=== PATIENT | male | born 1970 | race Caucasian/White ===

== ENCOUNTER 2016-12-12 15:45 | Outpatient (CLI) | payer OTHER ==
[2015-11-04 10:06] VITALS: BP 165/99
--- NOTE | 2016-12-12 17:28 | Diagnostic Imaging Report ---
[facility] [address] [facility].[address] [address] Report Submission Date: Dec 12, 2016 4:17:40 PM CDT Patient Study Name: CHENCHO ADAMS Date: Dec 12, 2016 3:50:44 PM CDT Modality Type: CR Gender: M Description: CHEST : 74 Institution: [facility] Physician: MERLIN DUENAS Chest PA and lateral views Clinical history: Cough with wheezing for 1 week Normal heart shadow and mediastinum. Clear lungs without acute infiltrate or pleural effusion. Normal bony thorax. Prominent bronchopulmonary marking probably consistent with acute bronchitis Impression: Acute bronchitis No acute consolidation or pleural effusion Electronically signed on Dec 12, 2016 4:17:40 PM CDT by: Ike VALENTINO
== END 2016-12-12 15:46 ==
LOC: RAD 15:45
PROVIDERS: ATTEND Physician Assistant
DX: R06.02 Shortness of breath (principal)
CPT/HCPCS: 71020

== ENCOUNTER 2018-01-10 10:57 | Outpatient (CLI) | payer OTHER ==
[2015-11-04 10:06] VITALS: BP 165/99
[2018-01-10 11:17] LABS: BASOPHILS % 1.4 (0.0-1.5); EOSINOPHILS % 11.2 % (0.0-6.8); MEAN CORPUSCULAR HEMOGLOBIN 30.8 pg (28.0-34.0); MEAN CORPUSCULAR VOLUME 87.7 fl (80.0-100.0); MONOCYTES % 5.4 % (0.0-11.0); NEUTROPHILS # 2.2 # k/uL (1.4-7.7)
[2018-01-10 11:42] LABS: eGFR (African) > 60; eGFR (Non-African) > 60
== END 2018-01-10 11:00 ==
LOC: LAB 10:57
PROVIDERS: ATTEND Physician Assistant
DX: Z00.00 Encounter for general adult medical examination without abnormal findings (principal); E03.9 Hypothyroidism, unspecified
CPT/HCPCS: 36415; 80053; 80061; 84443; 85025

== ENCOUNTER 2018-09-04 09:31 | Outpatient (CLI) | payer OTHER ==
[2015-11-04 10:06] VITALS: BP 165/99
--- NOTE | 2018-09-04 16:49 | Diagnostic Imaging Report ---
PADMA JOHNSON [facility] [address] [facility].[address] [address] Report Submission Date: Sep 04, 2018 10:28:46 AM [facility] Patient Study Name: CHENCHO ADAMS Date: Sep 04, 2018 9:51:49 AM [facility] Modality Type: US Gender: M Description: US RUQ : 74 Institution: [facility] Physician: PADMA JOHNSON Examination: Ultrasound right upper quadrant History: Ruq pain x 3weeks wnl (Hx) Findings: Sonographic evaluation of the right upper quadrant demonstrates the gallbladder without stones or sludge. Gallbladder wall measures 2.0 mm. Common bile duct measures 2.6 mm. No intrahepatic biliary dilation. Liver demonstrates normal homogeneous echogenicity. No mass or cyst. Normal flow on color analysis. Normal portal vein Doppler waveform. Right kidney without cortical mass or cyst. No hydronephrosis. Pancreatic region without gross irregularity. Impression: No gallstone or obstruction. Unremarkable abdominal ultrasound. Electronically signed on Sep 04, 2018 10:28:46 AM [facility] by: Kevyn VALENTINO
[2018-09-05 12:05] LABS: eGFR (Non-African) > 60
== END 2018-09-04 09:33 ==
LOC: RAD 09:31
PROVIDERS: ATTEND Family Medicine
DX: R10.11 Right upper quadrant pain (principal)
CPT/HCPCS: 36415; 76705; 80053; 83690

== ENCOUNTER 2018-12-20 09:21 | Outpatient (CLI) | payer OTHER ==
[2015-11-04 10:06] VITALS: BP 165/99
[2018-12-20 10:24] LABS: eGFR (Non-African) > 60
== END 2018-12-20 09:22 ==
LOC: LAB 09:21
PROVIDERS: ATTEND Family Medicine
DX: R10.11 Right upper quadrant pain (principal); R94.5 Abnormal results of liver function studies
CPT/HCPCS: 36415; 80053; 86706; 86708; 86803

== ENCOUNTER 2019-01-08 08:06 | Outpatient (CLI) | payer OTHER ==
[2015-11-04 10:06] VITALS: BP 165/99
--- NOTE | 2019-01-08 09:00 | Diagnostic Imaging Report ---
PADMA JOHNSON [facility] [address] [facility] [address] [place] [address]. [address] Report Submission Date: Jan 08, 2019 8:50:31 AM CDT Patient Study Name: CHENCHO ADAMS Date: Jan 08, 2019 8:24:26 AM CDT Modality Type: CT Gender: M Description: CT ABD PELVIS W/ CON : 74 Institution: [facility] Physician: PADMA JOHNSON Examination: CT Abdomen/pelvis History: RUQ PAIN X 4 MONTHS. HX OF DIVERTICULITIS. Comparison exams: Report from CT examination dated 14 August 2018 Technique: CT Abdomen/pelvis with IV protocol. Findings: Liver, spleen, adrenals, pancreas, kidneys and gallbladder are without gross irregularity. No gallstone. No suspicious renal calcifications. Ureters are nondilated in their course through the abdomen and pelvis. No central calcifications. Bladder margin within normal limits. Abdominal aorta without aneurysm or peripheral atherosclerotic disease. Cardiac silhouette is not enlarged. No pericardial effusion. No abnormal small bowel dilation. Stool within the large bowel limiting sensitivity. Scattered diverticula. No adjacent inflammatory changes. Appendix is visualized and is without inflammatory changes. Small hiatal hernia. Osseous structures appropriate for age. Lung bases demonstrate mild left base haziness. No effusion. Impression: No acute upper abdominal organ inflammatory process. Sigmoid diverticulosis. No evidence for abnormal bowel dilation. Small hiatal hernia. No gallstone. No suspicious renal calcifications or abnormal ureteric dilation. Mild left base haziness. No effusion. Electronically signed on Jan 08, 2019 8:50:31 AM CDT by: Kevyn VALENTINO
== END 2019-01-08 08:11 | disposition home or self-care (01) ==
LOC: RAD 08:06
PROVIDERS: ATTEND Family Medicine
DX: K44.9 Diaphragmatic hernia without obstruction or gangrene (principal); K57.30 Diverticulosis of large intestine without perforation or abscess without bleeding; R10.11 Right upper quadrant pain
CPT/HCPCS: 74177; Q9967